=== PATIENT | female | born 1975 | race Two or more races ===

== ENCOUNTER → 2017-11-29 | Emergency (ER) | payer OTHER ==
[~2017-11-29] VITALS: Ht 154.9 cm; Wt 87.5 kg
[~2017-11-29] MED LIST: BALMEX100 GM TP; NIFEDIPINE ER30 M1 PO; PRENATABS FA TA1 TAB PO; VALACYCLOVIR
== END | disposition home or self-care (01) ==
LOC: ER 22:08
DX: I10 Essential (primary) hypertension (principal); R51 Headache